=== PATIENT | male | born 1950 | race Asian ===

== ENCOUNTER 2023-03-08 10:41 | Day surgery (SDC) | payer OTHER ==
[~2023-03-08] VITALS: Ht 170.2 cm; Wt 68.5 kg
[2023-03-08] MEDS ORDERED: BUPIVACAINE LIPOSOME/PF 266 MG/20 ML VIAL INFIL ONE (12:06)
[2023-03-08] MEDS ORDERED: LR 1,000 ML IV.SOLN IV ONE (13:07)
[2023-03-08] MEDS ORDERED: fentaNYL CITRATE 250 MCG/5 ML AMP ONE (13:07)
[2023-03-08] MEDS ORDERED: GLYCOPYRROLATE 0.2 MG/ML VIAL ONE (13:07)
[2023-03-08] MEDS ORDERED: PROPOFOL 200MG/ 20ML VIAL (DIPRIVAN) IV ONE (13:07)
[2023-03-08] MEDS ORDERED: NS IRRIG SOLN 1000 ML IR ONE (13:07)
[2023-03-08] MEDS ORDERED: ceFAZolin SODIUM 1 GM VIAL ONE (13:07)
[2023-03-08] MEDS ORDERED: PHENYLEPHRINE HCL 10 MG/ML VIAL (NEOSYNEPHRINE) ONE (13:07)
[2023-03-08] MEDS ORDERED: SEVOFLURANE 15 MIN GAS INH ONE (13:07)
[2023-03-08] MEDS ORDERED: BUPIVACAINE /PF 0.25% 30 ML VIAL INJ ONE (13:07)
[2023-03-08] MEDS ORDERED: ROCURONIUM BROMIDE 10 MG/ML (ZEMURON) ONE (13:07)
[2023-03-08] MEDS ORDERED: ONDANSETRON HCL 4 MG/2 ML VIAL ONE (13:07)
[2023-03-08] MEDS ORDERED: SUCCINYLCHOLINE CHLORIDE 20 MG/ML(QUELICIN) ONE (13:07)
[2023-03-08] MEDS ORDERED: hydrALAZINE HCL 20 MG/ML VIAL IVP PRN (15:45)
[2023-03-08] MEDS ORDERED: HYDROmorphone 1 MG/ML INJ. CARTRIDGE IVP PRN (15:45)
[2023-03-08] MEDS ORDERED: ONDANSETRON HCL 4 MG/2 ML VIAL IVP PRN (15:45)
[2023-03-08] MEDS ORDERED: HYDROmorphone 1 MG/ML INJ. CARTRIDGE ONE (15:49)
[2023-03-08] MEDS ORDERED: ACETAMINOPHEN 325 MG TABLET ONE (17:12)
[2023-03-08] MEDS ORDERED: ACETAMINOPHEN 325 MG TABLET PO ONE (17:15)
[2023-03-08 18:21] VITALS: BP_SYST 138
== END 2023-03-08 18:50 | disposition home or self-care (01) ==
LOC: SDS 10:41 → SMU 10:41 → SDS 18:50
PROVIDERS: ATTEND Surgery
DX: K40.90 Unilateral inguinal hernia, without obstruction or gangrene, not specified as recurrent (principal); I10 Essential (primary) hypertension; Z88.0 Allergy status to penicillin; Z88.6 Allergy status to analgesic agent; Z80.49 Family history of malignant neoplasm of other genital organs
CPT/HCPCS: 87081; 93005; C1727; C1781; C9290; J0330; J0690; J1170; J2370; J2405; J2704; J3010; J3490; J7120